=== PATIENT | female | born 1990 | race Caucasian/White ===

== ENCOUNTER 2018-07-28 05:08 | Emergency (ER) | payer MEDICAID ==
[~2018-07-28] VITALS: Ht 152.4 cm; Wt 40.8 kg
[~2018-07-28 05:08] MED LIST: ACE30IS IN; ACET167L GT; ALBUPOW26 INH; AMBIEN; ATEN-60 GT; ATROVENT IN; BISM262C47 GT; DIAZ10TA; DIAZ2TAB GT; DIPH25CA39 GT; GABA300C GT; HYDR4TAB21 PO; IPRA0.035 INH; MAGN-46 PR; METH5TAB2 PO; MON10T GT; MONT10TA23; MUPI2OIN10 TOP; OME20GT GT; POLY33504 GT; PULMOCORT; SENN-58 GT; SIME80CH6 PO; SUCR1SUS10 GT; TIZA4CAP7 GT; TROL10LO EXT; ZOFR4T GT; ZOLP10TA GT; [UNRECOGNIZED DRUG - CODE] EX; [UNRECOGNIZED DRUG - CODE] INH; [UNRECOGNIZED DRUG - CODE] XX
[2018-07-28] MEDS ORDERED: ALBUTEROL SULF 2.5 MG/0.5ML(0.5%) NEB SOLN ONE (05:20)
[2018-07-28] MEDS ORDERED: IPRATROPIUM BROM 0.5 MG/2.5ML INH SOL ONE (05:20)
[2018-07-28] MEDS ORDERED: ALBUTEROL SULF 2.5 MG/0.5ML(0.5%) NEB SOLN NEB ONE (05:30)
[2018-07-28] MEDS ORDERED: IPRATROPIUM BROM 0.5 MG/2.5ML INH SOL NEB ONE (05:30)
[2018-07-28 05:38] VITALS: BP 107/62
[2018-07-28] MEDS ORDERED: ATROPINE SULF 0.5 MG/5ML SYR ONE (05:59)
[2018-07-28 06:12] LABS: Hematocrit 30.7 % (36.0-46.0); Hemoglobin 9.4 g/dL (12.2-16.2); Mean Corpuscular Hemoglobin 22.6 pg (28.0-32.0); Mean Corpuscular Hgb Conc. 30.5 g/dL (32.0-36.0); Mean Corpuscular Volume 74.1 fL (80.0-100.0); Platelet Count (auto) 587 10^3/uL (140-450); Red Blood Cells 4.15 10^6/uL (4.0-5.20); Red Cell Distribution Width 17.5 % (11.8-14.3); White Blood Cell 18.3 10^3/uL (4.4-10.8)
[2018-07-28 06:20] LABS: Albumin 1.9 g/dL (3.4-5.0); Calcium 12.5 mg/dL (8.5-10.1); Magnesium 2.7 mg/dL (1.6-2.6)
[2018-07-28 06:21] LABS: Lactic Acid w/Reflex 2.3 mmol/L (0.4-2.0)
[2018-07-28 06:24] LABS: Bilirubin, Total 0.3 mg/dL (0.2-1.0); Total Protein 8.3 g/dL (6.4-8.2)
[2018-07-28 06:29] LABS: BUN/Creatinine Ratio 138.1
[2018-07-28 06:32] LABS: Potassium 6.4 mmol/L (3.5-5.1)
[2018-07-28 08:28] LABS: Basophils % (manual) 0 (0.0-2.0); Blast Cells 0; Eosinophils % (manual) 0 (0-7); Myelocytes % 0; Promyelocytes % 0; Reactive Lymphocytes 0
[2018-07-28 08:31] LABS: Band Neutrophils % (manual) 15
[2018-07-28 08:32] LABS: Lymphocytes % (manual) 16 (10.0-50.0); Metamyelocytes % 1; Monocytes % (manual) 3 (0-12)
== END 2018-07-28 09:02 | disposition expired ==
LOC: ER 05:08 → EDBD 05:08 → ER 09:02
DX: G93.1 Anoxic brain damage, not elsewhere classified (principal)
CPT/HCPCS: 36415; 36600; 80053; 82805; 83605; 83735; 84484; 85007; 85025; 85027; 87040; 87077; 87186; 93005; 94640; 99285; J7611; J7644; 94002; J0461